=== PATIENT | female | born 1990 | race Caucasian/White ===

== ENCOUNTER 2017-06-02 11:01 | Emergency (ER) | payer OTHER ==
[~2017-06-02] VITALS: Ht 157.5 cm; Wt 557.5 kg
[2017-06-02 13:11] VITALS: BP 127/85
== END 2017-06-02 13:12 | disposition home or self-care (01) ==
LOC: ED 11:01
DX: H00.034 Abscess of left upper eyelid (principal)

== ENCOUNTER 2017-06-28 10:18 | Emergency (ER) | payer OTHER ==
[~2017-06-28] VITALS: Ht 157.5 cm; Wt 58.2 kg
[2017-06-28 10:39] VITALS: BP 107/73
== END 2017-06-28 12:33 | disposition home or self-care (01) ==
LOC: ED 10:18
DX: N61.0 Mastitis without abscess (principal)